=== PATIENT | female | born 1980 | race Two or more races ===

== ENCOUNTER 2025-01-13 14:01 | Emergency (ER) | payer MEDICAID, SELFPAY ==
[2025-01-13] VITALS (7 sets, daily range): BP systolic 105–122; BP diastolic 54–76; PULSE 100–150; RESP 15–21; TEMP 36.8–38.2; O2SAT 95–100; BMI 39.4
--- NOTE | 2025-01-13 14:13 | XR_ITS ---
EXAMINATION: PA lateral chest 2 views TECHNIQUE: Upright PA lateral chest 2 views Date and time: January 13, 2025, 1425 hours INDICATIONS: Headache shortness of breath weakness fever beginning 2 days ago. FINDINGS: Normal heart size Lungs are clear Osseous structures are intact IMPRESSION: No active disease
--- NOTE | 2025-01-13 14:15 | PD.EDRME ---
Rapid Medical Screening Exam RME Arrival date/time: 01/13/25 14:01 44-year-old female presents to the emergency department after complaints of fever abdominal pain and generalized fatigue Chief Complaint: Flu Like Symptoms Time Seen by Provider: 01/13/25 14:09 Vital signs: Vital Signs Temperature 100.8 F H 01/13/25 14:10 Pulse Rate 150 H 01/13/25 14:10 Respiratory Rate 20 01/13/25 14:10 Blood Pressure 122/54 L 01/13/25 14:10 Pulse Oximetry (%) 97 01/13/25 14:10 Oxygen Delivery Method Room Air 01/13/25 14:10 Vital signs reviewed by provider: Yes Exam: On exam patient tachycardic and febrile Clinical Impression: Sepsis workup initiated Lab work and imaging ordered
[2025-01-13] MEDS: ACETAMINOPHEN 500 MG TABLET 1000 MG PO (14:25)
[2025-01-13 14:39] LABS: Lactate (Lactic Acid) 1.1 mMol/L (0.4-2.0)
[2025-01-13] MEDS: ONDANSETRON ODT 4 MG TABRAP 8 MG PO (14:44)
[2025-01-13 14:45] LABS: Basophils # (Auto) 0.0 Thou/mm3 (0.0-0.2); Basophils % (Auto) 0 % (0-2.5); Eosinophils # (Auto) 0.0 Thou/mm3 (0.0-0.5); Eosinophils % (Auto) 0 % (0-10); Hematocrit 39.5 % (36.0-46.0); Hemoglobin 13.3 g/dL (12.0-16.0); Immature Granulocytes Auto 0.12 Thou/mm3 (0.00-0.00); Lymphocytes # (Auto) 1.3 Thou/mm3 (1.0-4.8); Lymphocytes % (Auto) 6 % (10-50); Mean Corpuscular HGB Conc 33.7 g/dl (31.0-37.0); Mean Corpuscular Hemoglobin 29.4 pg (25.0-35.0); Mean Corpuscular Volume 87 fL (80-100); Monocytes # (Auto) 1.1 Thou/mm3 (0.0-0.8); Monocytes % (Auto) 5 % (0-12); Neutrophils # (Auto) 19.6 Thou/mm3 (1.8-7.7); Neutrophils % (Auto) 89 % (37-80); Nucleated Red Blood Cell # 0.00 Thou/mm3 (0.00-0.00); Nucleated Red Blood Cell % 0 /100 WBC (0); Platelet Count 211 Thou/mm3 (140-440); RDW Standard Deviation 41.6 fL (36.4-46.3); Red Blood Count 4.53 Miln/mm3 (4.00-5.20); White Blood Count 22.2 Thou/mm3 (3.6-11.0)
[2025-01-13 15:03] LABS: COVID-19 Antigen (In-House) Negative (Negative)
[2025-01-13 15:09] LABS: Alanine Aminotransferase 58 U/L (10-49); Albumin, Serum 4.7 gm/dL (3.5-5.0); Albumin/Globulin Ratio 1.7 (1.2-2.2); Alkaline Phosphatase 100 U/L (46-116); Anion Gap 12 (7-16); Aspartate Amino Transferase 40 U/L (0-34); BUN/Creatinine Ratio 12 Ratio (12-20); Bilirubin,Total 1.6 mg/dL (0.3-1.2); Blood Urea Nitrogen 7 mg/dL (9-23); Calcium 8.9 mg/dL (8.3-10.6); Calcium (Corrected) 8.9 mg/dL (8.5-10.1); Carbon Dioxide 21.9 mMol/L (20.0-31.0); Chloride 106 mMol/L (98-107); Creatinine (Component) 0.6 mg/dL (0.6-1.3); Estimated Creatinine Clearance 132.2 mL/min (>60); Globulin 2.8 gm/dL (2.3-3.5); Glucose 145 mg/dL (74-106); HCG,Qualitative Serum Negative; Lipase 17 U/L (12-53); Osmolality,Calculated 280 (275-295); Potassium 3.9 mMol/L (3.4-5.1); Procalcitonin 6.41 ng/ml (0.0-0.49); Sodium 140 mMol/L (136-145); Total Protein 7.5 gm/dL (5.7-8.2); eGFR > 60 See Note
[2025-01-13 15:12] LABS: Influenza A Ag Negative; Influenza B Ag Negative
[2025-01-13 15:14] LABS: Collection Type, Urine Clean Catch
[2025-01-13 15:36] LABS: Bacteria,Urine 1+; Bilirubin,Urine Negative (Negative); Blood,Urine 2+ (Negative); Color,Urine Yellow (Lt Yel-Yel); Glucose, Urine Trace (Negative); Hyaline Casts,Urine < 1 /hpf (0-1); Ketones,Urine 3+ (Negative); Leukocyte Esterase,Urine Positive (Negative); Nitrite,Urine Positive (Negative); PH,Urine 6.5 (5.0-7.0); Protein,Urine 2+ (Neg - Trace); RBC,Urine 53 /hpf (0-3); Specific Gravity,Urine 1.031 (1.001-1.035); Squamous Epithelial Cell,Urine 14 /hpf (0-5); Urobilinogen,Urine 3.0 mg/dL (0.0-1.0); WBC,Urine 542 /hpf (0-5)
[2025-01-13 15:42] LABS: Clarity,Urine Hazy (Clear/Hazy)
--- NOTE | 2025-01-13 16:49 | EKG_ITS ---
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
[2025-01-13] MEDS: SODIUM CHLORIDE 0.9% 1000 ML 1,000 ML 999 ML IV (17:27)
[2025-01-13] MEDS: cefTRIAXone 2 GM in SODIUM CHLORIDE 0.9% (Popper) 50 ML IV (17:30)
--- NOTE | 2025-01-13 18:31 | PD.EDURI ---
Upper Respiratory Inf. RME/HPI General Chief Complaint: Flu Like Symptoms Stated Complaint: FLu sx Time Seen by Provider: 01/13/25 14:09 Arrival date/time: 01/13/25 14:01 Limitations: no limitations RME / HPI RME / HPI Narrative: 01/13/25 14:01 44-year-old female presents to the emergency department after complaints of fever abdominal pain and generalized fatigue DR. BERNARD MAIN ED EVALUATION: 44 year old female with history of UTIs presents to the ED for evaluation of fevers and chills beginning yesterday. Additionally complains of pain to her lower back. Expressed concern of possibly having covid or infuenza and requesting to be checked today. No other associated symptoms reported. Denies chest pain, cough, shortness of breath, abdominal pain, n/v/d, or urinary symptoms. Exam: On exam patient tachycardic and febrile Impression: Sepsis workup initiated Lab work and imaging ordered Related Data Home Medications ?Medication ?Instructions ?Recorded ?Confirmed ergocalciferol (vitamin D2) 1,250 1,250 mcg PO QWEEK 01/27/20 01/27/20 mcg (50,000 unit) capsule (Vitamin D2) Previous Rx's ?Medication ?Instructions ?Recorded ciprofloxacin HCl 500 mg tablet 500 mg PO BID uti #20 tabs 01/13/25 Allergies Allergy/AdvReac Type Severity Reaction Status Date / Time No Known Allergies Allergy Verified 01/13/25 14:03 Review of Systems Review of Systems Systems Reviewed: All systems reviewed, normal except as documented Past Medical History Past Medical History GASTROINTESTINAL: Positive Gastrointestinal Disorders and Gall Bladder Disease (FOR THIS PROB) REPRODUCTIVE: Positive Previous Pregnancies (X6) OTHER HISTORY: Positive Blood Transfusions (POST HYSTERECTOMY) Family History FAMILY HISTORY: Positive Family Psychiatric Problems (MOTHER (DEPRESSION)), Family Cardiac Disorders (FATHER,MOTHER (HTN)), Family Surgery (MOTHER,SISTER) and Family Anesthesia Reaction (MOTHER?); Negative Family Respiratory Disorders, Family Gastrointestinal Problems or Family Cancer Surgical History SURGICAL: Positive Abdominal Surgery, Hysterectomy (PARTIAL) and Section (X3); Negative Pacemaker Social History SMOKING STATUS: Never smoker ED Exam General Limitations: Present no limitations General appearance: Present alert and in no apparent distress Head Head exam: Present atraumatic, normocephalic and normal inspection Eye Eye exam: Present normal appearance, PERRL and EOMI ENT ENT exam: Present normal exam, normal oropharynx and mucous membranes moist Neck Neck exam: Present normal inspection, full ROM and trachea midline Chest Chest inspection: Present normal inspection and symmetric chest wall rise Respiratory Respiratory exam: Present normal lung sounds bilaterally Cardiovascular Cardiovascular exam: Present regular rate, normal rhythm and normal heart sounds Abdominal Exam Abdominal exam: Present soft and normal bowel sounds Extremities Exam Extremities exam: Present normal inspection and full ROM Back Exam Back exam: Present normal inspection and full ROM; Absent CVA tenderness (R) Neurological Exam Neurological exam: Present alert, oriented X3 and CN II-XII intact Psychiatric Psychiatric exam: Present normal affect and normal mood Skin Skin exam: Present warm, dry, intact and normal color Course Quality Measures none Orders Category Date Time Status Medical Office Scheduler NOW Care 01/13/25 16:49 Completed Continuous Pulse Oximetry NOW Care 01/13/25 16:49 Completed EKG (ED ONLY) *Do not use* NOW Care 01/13/25 16:49 Completed Insert IV NOW Care 01/13/25 16:49 Completed EKG (ED Only) Stat Exams 01/13/25 16:49 Draft XR chest 2V Stat Exams 01/13/25 14:13 Completed Blood Culture (Lab) Stat Lab 01/13/25 14:20 Results CBC Stat Lab 01/13/25 14:26 Completed COVID-19 Antigen (In-House) Stat Lab 01/13/25 14:17 Completed Comprehensive Metabolic Panel Stat Lab 01/13/25 14:26 Completed FLU A&B [Influenza A & B Rapid Panel] Stat Lab 01/13/25 14:17 Completed HCG,Qualitative Serum Stat Lab 01/13/25 14:26 Completed Lactate (Lactic Acid) Stat Lab 01/13/25 14:26 Completed Lipase Stat Lab 01/13/25 14:26 Completed Procalcitonin Stat Lab 01/13/25 14:26 Completed Urinalysis Stat Lab 01/13/25 15:00 Completed Urine Culture Stat Lab 01/13/25 15:00 Received Acetaminophen Tab [Tylenol ES Tab] Med 01/13/25 14:13 Discontinued 1,000 mg PO X1 ONE Ondansetron Odt [Zofran Odt] Med 01/13/25 14:14 Discontinued 8 mg PO X1 ONE Sodium Chloride 0.9% 1000 ml [Ns] 1,000 ml Med 01/13/25 16:49 Discontinued IV 999 mls/hr cefTRIAXone [Rocephin] 2 gm Med 01/13/25 17:03 Discontinued SODIUM CHLORIDE 0.9% (Popper) [Ns 0.9% (P)] 50 ml IV X1 Vital Signs Vital signs: Vital Signs Temperature 100.8 F H 01/13/25 14:10 Pulse Rate 150 H 01/13/25 14:10 Respiratory Rate 20 01/13/25 14:10 Blood Pressure 122/54 L 01/13/25 14:10 Pulse Oximetry (%) 97 01/13/25 14:10 Oxygen Delivery Method Room Air 01/13/25 14:10 Upper Respiratory Infection MDM Narrative MDM Narrative:: Dianne Butts am scribing for and in the presence of Dr. Bernard. Patient data External records reviewed:: None Clinical information provided by:: patient Social determinants that could affect healthcare access:: none Patient has the following chronic illnesses:: NONE How is presenting disease/condition affected by chronic disease/condition?: no chronic disease Evaluation data The following diagnostics were reviewed and interpreted by me:: lab results Lab and/or radiology exams considered but not ordered:: Renal us Interpretation Summary: UTI Medications / Prescriptions Medications or Prescriptions considered but not ordered:: NONE Medication administrations:: Medication Administration History Discontinued Medications Acetaminophen (Acetaminophen 500 Mg Tablet) 1,000 mg PO X1 ONE Stop: 01/13/25 14:14 Last Admin: 01/13/25 14:25 Dose: 1,000 mg Documented By: Sodium Chloride (Ns) 1,000 mls @ 999 mls/hr IV .Q1H1M ONE Stop: 01/13/25 17:49 Last Infusion: 01/13/25 18:15 Dose: Infused Documented By: Admin: 01/13/25 17:27 Dose: 999 mls/hr Documented By: GM Ceftriaxone Sodium 2 gm/ (Sodium Chloride) 50 mls @ 100 mls/hr IV X1 ONE Stop: 01/13/25 17:32 Last Infusion: 01/13/25 18:11 Dose: Infused Documented By: Admin: 01/13/25 17:30 Dose: 100 mls/hr Documented By: GM Ondansetron HCl (Ondansetron Odt 4 Mg Tabrap) 8 mg PO X1 ONE; Protocol Stop: 01/13/25 14:15 Last Admin: 01/13/25 14:44 Dose: 8 mg Documented By: n/a Consultations Consultation(s) initiated? (list below): No Diagnosis Upper Respiratory Differential Diagnosis: other Most likely diagnosis given after review of the tests above:: UTI, LEUKOCYTOSIS Admission Indicated Admission indicated?: not indicated Admission Request Was there a request for admission?: No Disposition Plan Disposition Plan: Discharge Discharge Attestation Discharge Attestation: The patient and all family members were given an opportunity to ask questions and understood the discharge instructions. Discharge instructions specifically effects, indications for sooner follow up or return to the emergency department, and the expected course of current diagnosis. Patient condition: Stable Discharge Plan Plan Patient Disposition: HOME (Self Care) Patient condition on transfer: Stable Prescriptions/Referrals Prescriptions/Med Rec: New ciprofloxacin HCl 500 mg tablet 500 mg PO BID MDD 2 Qty: 20 0RF No Action ergocalciferol (vitamin D2) [Vitamin D2] 1,250 mcg (50,000 unit) Capsule 1,250 mcg PO QWEEK Problem List Clinical Impression: UTI (urinary tract infection) Patient/Caregiver Discharge Instructions Discharge Activity: activity as tolerated Education Materials: ED CYSTITIS Female Adult Additional Instructions: Take medications as prescribed. Bedrest for 2 to 3 days. Drink plenty of fluids. Take Tylenol 500 mg 1-2 tabs by mouth every 6 hours as needed for fever or pain. Return to the ER for any concerns or worsening UTI symptoms Print Language: Romansh Stand Alone Forms: Linda Award Info., Patient Portal Info Letter
== END 2025-01-13 18:40 | disposition home or self-care (01) ==
LOC: SERX 17:07
PROVIDERS: Nurse Practitioner Primary Care; Emergency Provider Family Medicine
DX: N39.0 Urinary tract infection, site not specified (principal); R51.9 Headache, unspecified; R06.02 Shortness of breath; R53.1 Weakness; R50.9 Fever, unspecified; R00.0 Tachycardia, unspecified
CPT/HCPCS: 36415; 71046; 80053; 81001; 81025; 83605; 83690; 84145; 84484; 84703; 85025; 85610; 85730; 87040; 87077; 87086; 87186; 87502; 87811; 93005; 96365; 99284; J0696; J7030; J7050; Q0162; A9270